=== PATIENT | male | born 2000 | race African-American/Black ===

== ENCOUNTER 2021-01-31 10:10 | Outpatient (CLI) | payer OTHER | END 2021-01-31 19:58 | disposition home or self-care (01) | LOC: LAB 10:10 | PROVIDERS: ATTEND Family Medicine | DX: U07.1 COVID-19 (principal); Z20.822 Contact with and (suspected) exposure to COVID-19; R50.9 Fever, unspecified; R05 Cough | CPT/HCPCS: 87635; U0003 ==

== ENCOUNTER 2022-04-17 23:03 | Emergency (ER) | payer OTHER ==
[~2022-04-17] VITALS: Ht 170.2 cm; Wt 90.7 kg
[2022-04-17 23:05] VITALS: TEMP 97.6
[2022-04-18 00:39] VITALS: BP 95/61
== END 2022-04-18 00:40 | disposition home or self-care (01) ==
LOC: ED 23:03
DX: S02.2XXA Fracture of nasal bones, initial encounter for closed fracture (principal); R51.9 Headache, unspecified; S06.0X0A Concussion without loss of consciousness, initial encounter; Y04.0XXA Assault by unarmed brawl or fight, initial encounter; Y92.89 Other specified places as the place of occurrence of the external cause
CPT/HCPCS: 99283

== ENCOUNTER 2022-09-14 14:24 | Outpatient (CLI) | payer OTHER | END 2022-09-14 21:42 | disposition home or self-care (01) | LOC: RAD 14:24 | PROVIDERS: ATTEND Family Medicine | DX: M79.641 Pain in right hand (principal); S69.90XA Unspecified injury of unspecified wrist, hand and finger(s), initial encounter; Y92.89 Other specified places as the place of occurrence of the external cause ==